=== PATIENT | male | born 1930 | race Caucasian/White ===

== ENCOUNTER 2016-12-01 19:05 | Inpatient (IN) | payer MEDICARE, OTHER ==
[2016-12-01] MEDS ORDERED: cefTRIAXone 1 GM in SODIUM CHLORIDE 0.9% MINIBAG 100 ML IV STA (20:08)
[2016-12-01] MEDS ORDERED: SODIUM CHLORIDE 0.9% 1,000 ML IV ONE (20:09)
[2016-12-01] MEDS ORDERED: AZITHROMYCIN INJ 500 MG in SODIUM CHLORIDE 0.9% 250 ML IV STA (20:09)
[2016-12-01] MEDS ORDERED: SODIUM CHLORIDE 0.9% 500 ML IV ONE (20:10)
[2016-12-01] MEDS ORDERED: cefTRIAXone 1 GM VIAL ONE (20:29)
[2016-12-01] MEDS ORDERED: HYDROcod/ACETAM 5/325 MG TABLET PO PRN (21:29)
[2016-12-01] MEDS ORDERED: ONDANSETRON ODT 4 MG TABLET TL PRN (21:29)
[2016-12-01] MEDS ORDERED: ACETAMINOPHEN 325 MG TABLET PO PRN (21:29)
[2016-12-01] MEDS ORDERED: ONDANSETRON 4 MG/2 ML VIAL IVP PRN (21:29)
[2016-12-01] MEDS: SODIUM CHLORIDE 0.9% 1,000 ML IV SCH (23:12)
[2016-12-01] MEDS: SODIUM CHLORIDE FLUSH 0.9% 10 ML SYRINGE IVP SCH (23:12)
[2016-12-01] MEDS ORDERED: diltiaZEM INJ 5 MG/ML VIAL IVP SCH (23:25)
[2016-12-01] MEDS: ALBUTEROL NEB 2.5 MG/3 ML INH PRN (23:56)
[2016-12-02] MEDS: ALBUTEROL NEB 2.5 MG/3 ML INH PRN ×4 (06:18→18:10)
[2016-12-02] MEDS: PANTOPRAZOLE 40 MG VIAL IVP SCH (06:35)
[2016-12-02] MEDS: SODIUM CHLORIDE FLUSH 0.9% 10 ML SYRINGE IVP SCH ×3 (06:36→22:11)
[2016-12-02] MEDS: SACCHAROMYCES BOULARDII 250 MG CAPSULE PO SCH ×2 (08:01→17:21)
[2016-12-02] MEDS: LOSARTAN 50 MG TABLET PO SCH (08:01)
[2016-12-02] MEDS: CARVEDILOL 12.5 MG TABLET PO SCH ×2 (08:01→20:34)
[2016-12-02] MEDS: cefTRIAXone 2 GM in SODIUM CHLORIDE 0.9% MINIBAG 100 ML IV SCH (08:12)
[2016-12-02] MEDS: AZITHROMYCIN INJ 500 MG in SODIUM CHLORIDE 0.9% 250 ML IV SCH (09:46)
[2016-12-02] MEDS: SODIUM CHLORIDE 0.9% 1,000 ML IV SCH ×2 (09:52→20:34)
[2016-12-02] MEDS ORDERED: POTASSIUM CHLORIDE 20 MEQ TABLET PO ONE (12:00)
[2016-12-02] MEDS: CALCIUM CITRATE 250 MG TABLET PO SCH ×4 (12:03→20:34)
[2016-12-02] MEDS ORDERED: LORazepam 2 MG/ML SYRINGE IVP PRN (17:42)
[2016-12-03] MEDS: SODIUM CHLORIDE 0.9% 1,000 ML IV SCH ×3 (05:05→17:30)
[2016-12-03] MEDS: ALBUTEROL NEB 2.5 MG/3 ML INH PRN ×3 (05:15→14:23)
[2016-12-03] MEDS: SODIUM CHLORIDE FLUSH 0.9% 10 ML SYRINGE IVP SCH ×2 (06:11→10:13)
[2016-12-03] MEDS: PANTOPRAZOLE 40 MG VIAL IVP SCH (06:11)
[2016-12-03] MEDS: SODIUM CHLORIDE FLUSH 0.9% 10 ML SYRINGE IVP PRN (06:11)
[2016-12-03] MEDS: SACCHAROMYCES BOULARDII 250 MG CAPSULE PO SCH ×2 (07:53→16:30)
[2016-12-03] MEDS: POLYETHYLENE GLYCOL 3350 17 GM PACKET PO SCH (08:50)
[2016-12-03] MEDS: CARVEDILOL 12.5 MG TABLET PO SCH ×2 (08:50→21:14)
[2016-12-03] MEDS: cefTRIAXone 2 GM in SODIUM CHLORIDE 0.9% MINIBAG 100 ML IV SCH (08:50)
[2016-12-03] MEDS: LOSARTAN 50 MG TABLET PO SCH (08:50)
[2016-12-03] MEDS: AZITHROMYCIN INJ 500 MG in SODIUM CHLORIDE 0.9% 250 ML IV SCH (09:42)
[2016-12-03] MEDS ORDERED: FUROSEMIDE 20 MG/2 ML VIAL IVP ONE ×2 (10:37→11:00)
[2016-12-03] MEDS: WARFARIN 5 MG TABLET PO SCH (13:25)
[2016-12-04] MEDS: SODIUM CHLORIDE FLUSH 0.9% 10 ML SYRINGE IVP SCH ×4 (01:08→14:30)
[2016-12-04] MEDS: ALBUTEROL NEB 2.5 MG/3 ML INH PRN (01:54)
[2016-12-04] MEDS: SODIUM CHLORIDE 0.9% 1,000 ML IV SCH (03:38)
[2016-12-04] MEDS: PANTOPRAZOLE 40 MG VIAL IVP SCH (06:47)
[2016-12-04] MEDS: SACCHAROMYCES BOULARDII 250 MG CAPSULE PO SCH ×2 (07:48→18:24)
[2016-12-04] MEDS: CARVEDILOL 12.5 MG TABLET PO SCH ×2 (08:31→21:00)
[2016-12-04] MEDS: POLYETHYLENE GLYCOL 3350 17 GM PACKET PO SCH (08:31)
[2016-12-04] MEDS: cefTRIAXone 2 GM in SODIUM CHLORIDE 0.9% MINIBAG 100 ML IV SCH (08:31)
[2016-12-04] MEDS: LOSARTAN 50 MG TABLET PO SCH (08:31)
[2016-12-04] MEDS ORDERED: FUROSEMIDE 20 MG/2 ML VIAL IVP SCH (09:30)
[2016-12-04] MEDS: AZITHROMYCIN INJ 500 MG in SODIUM CHLORIDE 0.9% 250 ML IV SCH (09:53)
[2016-12-04] MEDS ORDERED: ALBUTEROL NEB 2.5 MG/3 ML INH PRN (13:04)
[2016-12-04] MEDS: WARFARIN 5 MG TABLET PO SCH (14:29)
[2016-12-04] MEDS: predniSONE 20 MG TABLET PO SCH (14:29)
[2016-12-04] MEDS: IPRATROPIUM/ALBUTEROL 3 ML NEB INH SCH ×2 (14:30→20:50)
[2016-12-05] MEDS ORDERED: POTASSIUM CHLORIDE 20 MEQ TABLET PO SCH ×2 (05:28→09:00)
[2016-12-05] MEDS: PANTOPRAZOLE 40 MG VIAL IVP SCH (06:37)
[2016-12-05] MEDS: SODIUM CHLORIDE FLUSH 0.9% 10 ML SYRINGE IVP SCH ×4 (06:39→21:02)
[2016-12-05] MEDS: IPRATROPIUM/ALBUTEROL 3 ML NEB INH SCH ×4 (08:10→21:04)
[2016-12-05] MEDS: CARVEDILOL 12.5 MG TABLET PO SCH ×2 (08:31→21:01)
[2016-12-05] MEDS: LOSARTAN 50 MG TABLET PO SCH (08:31)
[2016-12-05] MEDS: predniSONE 20 MG TABLET PO SCH (08:31)
[2016-12-05] MEDS ORDERED: FUROSEMIDE 20 MG/2 ML VIAL IVP SCH (08:32)
[2016-12-05] MEDS: SACCHAROMYCES BOULARDII 250 MG CAPSULE PO SCH ×2 (08:33→18:12)
[2016-12-05] MEDS: POLYETHYLENE GLYCOL 3350 17 GM PACKET PO SCH (08:37)
[2016-12-05] MEDS ORDERED: SODIUM CHLORIDE 0.9% 500 ML IV PRN ×2 (09:40→09:49)
[2016-12-05] MEDS ORDERED: SODIUM CHLORIDE 0.9% 500 ML IV ONE (09:42)
[2016-12-05] MEDS: cefTRIAXone 2 GM in SODIUM CHLORIDE 0.9% MINIBAG 100 ML IV SCH (09:44)
[2016-12-05] MEDS: AZITHROMYCIN INJ 500 MG in SODIUM CHLORIDE 0.9% 250 ML IV SCH (10:33)
[2016-12-05] MEDS: SODIUM CHLORIDE FLUSH 0.9% 10 ML SYRINGE IVP PRN (11:51)
[2016-12-05] MEDS: WARFARIN 5 MG TABLET PO SCH (14:27)
[2016-12-06] MEDS: SODIUM CHLORIDE FLUSH 0.9% 10 ML SYRINGE IVP SCH ×3 (06:47→20:08)
[2016-12-06] MEDS: PANTOPRAZOLE 40 MG VIAL IVP SCH (06:47)
[2016-12-06] MEDS: IPRATROPIUM/ALBUTEROL 3 ML NEB INH SCH ×4 (07:16→20:12)
[2016-12-06] MEDS: predniSONE 20 MG TABLET PO SCH (07:50)
[2016-12-06] MEDS: SACCHAROMYCES BOULARDII 250 MG CAPSULE PO SCH ×2 (07:51→16:55)
[2016-12-06] MEDS ORDERED: POTASSIUM CHLORIDE 20 MEQ TABLET PO SCH (08:00)
[2016-12-06] MEDS: cefTRIAXone 2 GM in SODIUM CHLORIDE 0.9% MINIBAG 100 ML IV SCH (09:02)
[2016-12-06] MEDS: POTASSIUM CHLORIDE 20 MEQ TABLET PO SCH (09:06)
[2016-12-06] MEDS: CARVEDILOL 12.5 MG TABLET PO SCH ×2 (09:06→20:07)
[2016-12-06] MEDS: FUROSEMIDE 40 MG TABLET PO SCH (09:07)
[2016-12-06] MEDS: LOSARTAN 50 MG TABLET PO SCH (09:07)
[2016-12-06] MEDS: POLYETHYLENE GLYCOL 3350 17 GM PACKET PO SCH (09:33)
[2016-12-06] MEDS: AZITHROMYCIN INJ 500 MG in SODIUM CHLORIDE 0.9% 250 ML IV SCH (09:57)
[2016-12-06] MEDS: SODIUM CHLORIDE FLUSH 0.9% 10 ML SYRINGE IVP PRN (11:27)
[2016-12-06] MEDS: guaiFENesin 600 MG TABLET PO SCH ×2 (11:30→20:07)
[2016-12-06] MEDS: WARFARIN 5 MG TABLET PO SCH (15:05)
[2016-12-07] MEDS: PANTOPRAZOLE 40 MG VIAL IVP SCH (06:47)
[2016-12-07] MEDS: SODIUM CHLORIDE FLUSH 0.9% 10 ML SYRINGE IVP SCH ×3 (06:47→21:21)
[2016-12-07] MEDS: IPRATROPIUM/ALBUTEROL 3 ML NEB INH SCH ×4 (07:33→17:42)
[2016-12-07] MEDS: SACCHAROMYCES BOULARDII 250 MG CAPSULE PO SCH ×2 (09:32→17:53)
[2016-12-07] MEDS: FUROSEMIDE 40 MG TABLET PO SCH (09:32)
[2016-12-07] MEDS: guaiFENesin 600 MG TABLET PO SCH ×2 (09:32→21:18)
[2016-12-07] MEDS: predniSONE 20 MG TABLET PO SCH (09:32)
[2016-12-07] MEDS: POTASSIUM CHLORIDE 20 MEQ TABLET PO SCH (09:32)
[2016-12-07] MEDS: cefTRIAXone 2 GM in SODIUM CHLORIDE 0.9% MINIBAG 100 ML IV SCH (09:32)
[2016-12-07] MEDS: POLYETHYLENE GLYCOL 3350 17 GM PACKET PO SCH (09:33)
[2016-12-07] MEDS: AZITHROMYCIN INJ 500 MG in SODIUM CHLORIDE 0.9% 250 ML IV SCH (09:34)
[2016-12-07] MEDS: LOSARTAN 50 MG TABLET PO SCH (09:34)
[2016-12-07] MEDS: CARVEDILOL 12.5 MG TABLET PO SCH ×2 (09:34→21:17)
[2016-12-07] MEDS: WARFARIN 5 MG TABLET PO SCH (13:48)
[2016-12-08] MEDS: SODIUM CHLORIDE FLUSH 0.9% 10 ML SYRINGE IVP SCH (06:41)
[2016-12-08] MEDS: PANTOPRAZOLE 40 MG VIAL IVP SCH (06:41)
[2016-12-08] MEDS: IPRATROPIUM/ALBUTEROL 3 ML NEB INH SCH (07:40)
[2016-12-08] MEDS: FUROSEMIDE 40 MG TABLET PO SCH (08:12)
[2016-12-08] MEDS: SACCHAROMYCES BOULARDII 250 MG CAPSULE PO SCH (08:12)
[2016-12-08] MEDS: predniSONE 20 MG TABLET PO SCH (08:13)
[2016-12-08] MEDS: CARVEDILOL 12.5 MG TABLET PO SCH (08:13)
[2016-12-08] MEDS: guaiFENesin 600 MG TABLET PO SCH (08:14)
[2016-12-08] MEDS: POLYETHYLENE GLYCOL 3350 17 GM PACKET PO SCH (08:14)
[2016-12-08] MEDS: LOSARTAN 50 MG TABLET PO SCH (08:14)
[2016-12-08] MEDS: POTASSIUM CHLORIDE 20 MEQ TABLET PO SCH (08:15)
[2016-12-08] MEDS: cefTRIAXone 2 GM in SODIUM CHLORIDE 0.9% MINIBAG 100 ML IV SCH (08:15)
[2016-12-08] MEDS: SODIUM CHLORIDE FLUSH 0.9% 10 ML SYRINGE IVP PRN (08:21)
[2016-12-08] MEDS: AZITHROMYCIN INJ 500 MG in SODIUM CHLORIDE 0.9% 250 ML IV SCH (10:29)
== END 2016-12-08 13:19 | disposition home or self-care (01) | DRG 189 ==
DX: J96.01 Acute respiratory failure with hypoxia (principal); J18.1 Lobar pneumonia, unspecified organism; J18.9 Pneumonia, unspecified organism; I48.91 Unspecified atrial fibrillation; E87.6 Hypokalemia; J44.0 Chronic obstructive pulmonary disease with (acute) lower respiratory infection; J44.1 Chronic obstructive pulmonary disease with (acute) exacerbation; I48.2 Chronic atrial fibrillation; E87.70 Fluid overload, unspecified; I11.9 Hypertensive heart disease without heart failure; I25.10 Atherosclerotic heart disease of native coronary artery without angina pectoris; E78.5 Hyperlipidemia, unspecified; F03.90 Unspecified dementia, unspecified severity, without behavioral disturbance, psychotic disturbance, mood disturbance, and anxiety; F10.10 Alcohol abuse, uncomplicated; K21.9 Gastro-esophageal reflux disease without esophagitis; M19.90 Unspecified osteoarthritis, unspecified site; L23.9 Allergic contact dermatitis, unspecified cause; I73.00 Raynaud's syndrome without gangrene; I25.2 Old myocardial infarction; Z87.891 Personal history of nicotine dependence; Z95.5 Presence of coronary angioplasty implant and graft; Z96.659 Presence of unspecified artificial knee joint; Z99.81 Dependence on supplemental oxygen; Z79.82 Long term (current) use of aspirin; Z79.899 Other long term (current) drug therapy; Z90.79 Acquired absence of other genital organ(s); Z66 Do not resuscitate

== ENCOUNTER 2017-11-06 09:27 | Inpatient (IN) | payer MEDICARE, OTHER ==
[2017-11-06] MEDS ORDERED: SODIUM CHLORIDE 0.9% 1,000 ML IV ONE (09:47)
--- NOTE | 2017-11-06 10:09 | XRAY Report ---
EXAM: CHEST RADIOGRAPHY EXAM DATE: 11/06/2017 09:55 AM. CLINICAL HISTORY: Cough, shortness of breath, hypotension. COMPARISON: 05/31/2017, 12/03/2016. TECHNIQUE: 1 view. FINDINGS: Lungs/Pleura: There is patchy opacity at the medial right lung base. No pleural effusion. No pneumoth orax. Mediastinum: There is stable borderline enlargement of the cardiac silhouette. There is moderate athe rosclerotic calcification of the tortuous thoracic aorta. Other: No acute osseous abnormality. IMPRESSION: 1. Patchy opacity at the medial right lung base may represent pneumonia, aspiration, or edema. 2. Stable borderline cardiomegaly. [facility] Referring Provider Line: [phone] SITE ID: [id number]
--- NOTE | 2017-11-06 10:09 | XRAY Preliminary Report ---
Exam: XR CHEST 1 VIEW X-RAY IMPRESSION: 1. Patchy opacity at the medial right lung base may represent pneumonia, aspiration, or edema. 2. Stable borderline cardiomegaly. [facility] SITE ID: [id number]
--- NOTE | 2017-11-06 10:12 | ED Physician Documentation ---
History of Present Illness - Stated complaint Stated Complaint: FEVER/COUGH - Chief complaint Chief Complaint: Resp - Additonal information Additional information: hx from friend and pt 87 male fairly healthy - [place] has some short term memory issues per caregiver hx HTN and recurrent pna cough for three days sweats and chills had a MASSEY now better s/p apap no NVD Review of Systems Constitutional: reports: Chills, Fatigue, Sweats. denies: Fever Throat: denies: Sore throat Cardiac: denies: Chest pain / pressure Respiratory: reports: Dyspnea (worse laying down), Cough : denies: Dysuria Musculoskeletal: reports: Extremity swelling (mild) Endocrine: denies: Easy bruising / bleeding Immunocompromised: denies: Immunocompromised PD PAST MEDICAL HISTORY - Past Medical History Cardiovascular: Hypertension Respiratory: None Neuro: None Endocrine/Autoimmune: None GI: None : None Psych: None Musculoskeletal: None Derm: None - Past Surgical History Ortho: Knee replacement Cardiovascular: Coronary stent - Present Medications Home Medications: Ambulatory Orders Medication Instructions Recorded Confirmed Aspirin Chewable [[place] 81 mg PO DAILY 12/02/16 11/06/17 Aspirin] Cetirizine [ZyrTEC] 10 mg PO DAILY 12/02/16 11/06/17 Losartan Potassium [Cozaar] 100 mg PO DAILY 12/02/16 11/06/17 [place]-3/Dha/Epa/Fish Oil [Fish Oil 1,000 mg PO DAILY 12/02/16 11/06/17 1,000 mg Softgel] Albuterol Sulfate [Proair Hfa 1 - 2 puffs INH Q4H PRN #1 inhaler 12/08/16 Inhaler] Warfarin [Coumadin] 5 mg PO QDWARFARIN 30 Days tablet 12/08/16 Carvedilol [Coreg] 6.25 mg PO BID 11/06/17 11/06/17 Potassium Chloride [K-Dur] 20 meq PO DAILYWM 11/06/17 11/06/17 - Allergies Allergies/Adverse Reactions: Allergies Allergy/AdvReac Type Severity Reaction Status Date / Time amoxicillin Allergy Unknown Verified 12/05/16 16:59 codeine Allergy Unknown Verified 12/05/16 16:58 [id number] Reductase Allergy Unknown Verified 12/05/16 17:02 Inhibitor - Social History Does the pt smoke?: No Smoking Status: Never smoker Does the pt drink ETOH?: Yes Does the pt have substance abuse?: No PD ED PE NORMAL - Vitals Vital signs reviewed: Yes (BP low) - General General: Alert and oriented X 3 - HEENT HEENT: PERRL - Neck Neck: Supple, no meningeal sign - Cardiac Cardiac: RRR - Respiratory Respiratory: No respiratory distress, Clear bilaterally - Abdomen Abdomen: Soft, Non tender - Derm Derm: Normal color, Other (warm) - Extremities Extremities: No: No edema (mild symm non tender) - Neuro Neuro: Alert and oriented X 3 Results - Vitals Vitals: Vital Signs - 24 hr 11/06/17 09:41 Temperature 36.4 C L Heart Rate 85 Respiratory 18 Rate Blood Pressure 94/64 O2 Saturation 94 Oxygen O2 Source Room air - Labs Labs: Laboratory Tests 11/06/17 11/06/17 11/06/17 10:24 10:24 10:24 WBC 15.8 H RBC 4.35 L Hgb 14.0 Hct 41.5 L MCV 95.3 H MCH 32.3 H MCHC 33.9 RDW 13.1 Plt Count 164 MPV 9.2 Neut # 13.0 H Lymph # 1.6 [place] # 1.1 H Eos # 0.0 Baso # 0.0 Absolute Nucleated RBC 0.01 Nucleated RBC % 0.0 PT INR Sodium 134 L Potassium 4.2 Chloride 102 Carbon Dioxide 22 Anion Gap 10.0 BUN 23 H Creatinine 1.3 H Estimated GFR (MDRD) 52 L Glucose 125 H Lactic Acid Calcium 9.0 Troponin I < 0.04 B-Natriuretic Peptide Influenza A (Rapid) Influenza B (Rapid) Influenza Types A,B Ag 11/06/17 11/06/17 11/06/17 10:24 10:24 10:24 WBC RBC Hgb Hct MCV MCH MCHC RDW Plt Count MPV Neut # Lymph # [place] # Eos # Baso # Absolute Nucleated RBC Nucleated RBC % PT 14.8 H INR 1.3 H Sodium Potassium Chloride Carbon Dioxide Anion Gap BUN Creatinine Estimated GFR (MDRD) Glucose Lactic Acid 1.5 Calcium Troponin I B-Natriuretic Peptide 210 H Influenza A (Rapid) Influenza B (Rapid) Influenza Types A,B Ag 11/06/17 11:15 WBC RBC Hgb Hct MCV MCH MCHC RDW Plt Count MPV Neut # Lymph # [place] # Eos # Baso # Absolute Nucleated RBC Nucleated RBC % PT INR Sodium Potassium Chloride Carbon Dioxide Anion Gap BUN Creatinine Estimated GFR (MDRD) Glucose Lactic Acid Calcium Troponin I B-Natriuretic Peptide Influenza A (Rapid) Negative Influenza B (Rapid) Negative Influenza Types A,B Ag - - Rads (name of study) CXR Radiology: See rad report (right medial lung base infiltrate) PD MEDICAL DECISION MAKING - ED course ED course: pna hypotensive meets SIRS criteria lactate neg gave 1 L NS and ab - will recheck BP - if still low BP will give full 300 cc/kg waiting on flu swab but will need admit either way d/w hospitalist at 11 AM Departure - Departure Disposition: 66 [facility] DC/Xfer Clinical Impression: Pneumonia Qualifiers: Pneumonia type: due to unspecified organism Laterality: right Lung location: lower lobe of lung Qualified Code(s): J18.1 - Lobar pneumonia, unspecified organism Discharge Date/Time: 11/06/17 11:48
[2017-11-06 10:36] LABS: BASOPHILS % (AUTO) 0.3 %; EOSINOPHILS % (AUTO) 0.1 %; LYMPHOCYTES # (AUTO) 1.6 10^3/uL (1.5-3.5); LYMPHOCYTES % (AUTO) 9.9 %; MEAN CORPUSCULAR HEMOGLOBIN 32.3 pg (27.0-31.0); MEAN CORPUSCULAR HGB CONC 33.9 g/dL (32.0-36.0); MEAN CORPUSCULAR VOLUME 95.3 fL (80.0-94.0); MEAN PLATELET VOLUME 9.2 fL (7.4-11.4); MONOCYTES # (AUTO) 1.1 10^3/uL (0.0-1.0); MONOCYTES % (AUTO) 7.3 %; NEUTROPHILS % (AUTO) 82.4 %; PLT - PLATELET COUNT 164 10^3/uL (130-450); RED BLOOD COUNT 4.35 10^6/uL (4.70-6.10); RED CELL DISTRIBUTION WIDTH 13.1 % (12.0-15.0); WHITE BLOOD COUNT 15.8 x10^3/uL (4.8-10.8)
[2017-11-06 10:42] LABS: INR 1.3 (0.8-1.2); PT - PROTHROMBIN TIME 14.8 secs (9.9-12.6)
[2017-11-06 10:48] LABS: CREATININE 1.3 mg/dL (0.6-1.2)
[2017-11-06] MEDS ORDERED: cefTRIAXone 1 GM in SODIUM CHLORIDE 0.9% MINIBAG 100 ML IV STA (11:03)
[2017-11-06] MEDS ORDERED: AZITHROMYCIN 250 MG TABLET PO STA (11:04)
--- NOTE | 2017-11-06 12:17 | HISTORY & PHYSICAL EXAMINATION ---
Chief Complaint - Chief Complaint Chief Complaint: shortness of breath and cough History of Present Illness - Admitted From Admitted From:: ED - History Obtained From Records Reviewed: yes History obtained from: chart review, friend Charanjit, and patient Exam Limitations: none - History of Present Illness HPI Comment/Other: Jaylen Can (Bob) is an elderly 87-year old white male with a past medical history of short term memory loss, early dementia, previous pneumonia, hypertension, atrial fibrillation, knee replacement, coronary stenting, and COPD. He presented to the ED today after being ill for the past 3 days with a cough, chills, fever, and increased SOB. He attempted to get an appointment with his PCP yesterday for these symptoms with no luck. He denies chest pain, N /V, or dizziness. He will be admitted for further treatment of his pneumonia, IV fluids and telemetry monitoring. History - Past Medical History Cardiovascular: reports: Hypertension, Atrial fibrillation, Arrhythmia Respiratory: reports: None Neuro: reports: Dementia Endocrine/Autoimmune: reports: None GI: reports: GERD : reports: Nocturia, Frequency HEENT: reports: Chronic vision loss, Chronic hearing loss Psych: reports: None Musculoskeletal: reports: None Derm: reports: None MRSA Hx?: No - Past Surgical History Ortho: reports: Knee replacement Cardiovascular: reports: Coronary stent Neuro: denies: Craniotomy, RELATIONSH[employer]IST shunt - Family & Social History Family History: Mother: , Father: , Sister: Alive and Well, , Brother: Family History Comment/Other: Patient's memory is not the best, but does not believe that his mother or father had any chronic illnesses. He has one living sister who is alive and well. 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 He has been 2 times , and his last several years ago. He has one step-son who lives in [facility] and is disabled. He denies tobacco, illicit drugs or alcohol use. He wishes to be a FULL code. - Substance History Use: Uses substance without health or social issues: NONE Abuse: Recurrent use of substance despite neg consequences: NONE Dependence: Experiences withdrawal or developed tolerances: NONE - POLST Patient has POLST: No POLST Status: Full Code Meds/Allgy - Home Medications Home Medications: Ambulatory Orders Medication Instructions Recorded Confirmed Aspirin Chewable [[place] 81 mg PO DAILY 12/02/16 11/06/17 Aspirin] Cetirizine [ZyrTEC] 10 mg PO DAILY 12/02/16 11/06/17 Losartan Potassium [Cozaar] 100 mg PO DAILY 12/02/16 11/06/17 [place]-3/Dha/Epa/Fish Oil [Fish Oil 1,000 mg PO DAILY 12/02/16 11/06/17 1,000 mg Softgel] Albuterol Sulfate [Proair Hfa 1 - 2 puffs INH Q4H PRN #1 inhaler 12/08/16 Inhaler] Carvedilol [Coreg] 6.25 mg PO BID 11/06/17 11/06/17 Potassium Chloride [K-Dur] 20 meq PO DAILYWM 11/06/17 11/06/17 - Allergies Allergies/Adverse Reactions: Allergies Allergy/AdvReac Type Severity Reaction Status Date / Time amoxicillin Allergy Unknown Verified 12/05/16 16:59 codeine Allergy Unknown Verified 12/05/16 16:58 [id number]-[id number]-Hcm Reductase Allergy Unknown Verified 12/05/16 17:02 Inhibitor Review of Systems - Constitutional Constitutional: reports: Fatigue, Fever, Chills, Weakness. denies: Poor appetite, Night sweats, Weight gain, Weight loss - Eyes Eyes: reports: Vision loss, Corrective lenses. denies: Pain, Irritation, Amaurosis - Ears, Nose & Throat Ears, Nose & Throat: reports: Hearing loss, Dentures. denies: Hearing aids, Tinnitus, Vertigo, Dental decay - Cardiovascular Cariovascular: reports: Decr. exercise tolerance. denies: Irregular heart rate , Palpitations, Chest pain, Edema - Respiratory Respiratory: reports: Cough. denies: Sputum production, Wheezing - Gastrointestinal Gastrointestinal: reports: Reflux/heartburn. denies: Abdominal pain, Abdominal distention, Constipation, Diarrhea - Genitourinary Genitourinary: reports: Nocturia. denies: Dysuria, Frequency, Urgency, Incontinence - Musculoskeletal Musculoskeletal: denies: Muscle pain, Back pain, Muscle aches, Stiffness - Integumentary Integumentary: reports: Dryness. denies: Rash, Pruritis, Lesions - Neurological Neurological: reports: Headache. denies: General weakness, Focal weakness - Psychiatric Psychiatric: denies: Depression, Anxiety, Suicidal - Endocrine Endocrine: denies: Polyuria, Polydypsia - Hematologic/Lymphatic Hematologic/Lymphatic: denies: Anemia, Bruising - All Other Systems All Other Systems: reports: Reviewed and negative Exam - Vital Signs Reviewed Vital Signs: Yes Vital Signs: Vital Signs x48h Pulse Resp BP Pulse Ox 11/06/17 11:41 78 22 122/67 95 - Physical Exam General Appearance: positive: Alert, Moderate distress Eyes Bilateral: positive: Normal inspection ENT: positive: ENT inspection nml, Pharynx nml, Dry mucous membranes Neck: positive: Nml inspection, Thyroid nml, Stiff neck Respiratory: positive: Chest non-tender, Wheezes, Rhonchi Cardiovascular: positive: No gallop, Irregularly irregular, Systolic murmur, Decreased pulse(s) Peripheral Pulses: positive: 2+ Abdomen: positive: Non-tender, No organomegaly, Nml bowel sounds, No distention Back: positive: Nml inspection Skin: positive: No rash, Warm, Dry, Pallor Extremities: positive: Non-tender, Full ROM, No pedal edema Neurologic/Psychiatric: positive: CN's nml (2-12), Motor nml, Sensation nml, Disoriented to time, Slurred/abnml speech, Depressed mood/affect, Other ( baseline short term memory loss, early dementia) Reflexes: Bicep (R): 3+, Bicep (L): 3+ Conclusion/Plan - Problem List (1) Lobar pneumonia, unspecified organism Conclusion/Plan: Patient is noted to have a right sided pneumonia suspicious for aspiration. Patient denies increased cough or sputum production. Plan: Start IV antibiotics, IV steroids, and nebs. (2) Chronic atrial fibrillation Conclusion/Plan: Patient is noted to have severe RA enlargement, causing the patient's arrhythmia to be chronic. He admits to previous anticoagulation. Plan: Telemetry x 24 hours, then monitor vital signs. May consider anticoagulant upon discharge. (3) Dementia Conclusion/Plan: Patient has been living with friends Charanjit and Vida who are his care givers. Patient no longer drives, but can still complete all ADLs. Due to patient's declining health and poor memory, he now lives with friends. Plan: Continue current plan. - Lab Results Fish Bones: 11/08/17 04:40 11/08/17 04:40 Core Measures - Anticipated LOS I expect patient to be DC'd or transferred within 96 hours.: Yes - DVT/VTE - Prophylaxis VTE/DVT Device ordered at admit?: Yes VTE/DVT Prophylaxis med ordered at admit?: Yes - Stroke - Rehab Assessment Rehab services assessment to be ordered?: Yes - AMI - Statin at Admit Aspirin Prescribed on Admit: Yes
[2017-11-06] MEDS: CARVEDILOL 3.125 MG TABLET PO SCH ×2 (13:27→21:48)
[2017-11-06] MEDS: SODIUM CHLORIDE FLUSH 0.9% 10 ML SYRINGE IVP PRN ×3 (14:32→21:52)
[2017-11-06] MEDS ORDERED: IPRATROPIUM/ALBUTEROL 3 ML NEB INH PRN (16:09)
[2017-11-06] MEDS: SODIUM CHLORIDE FLUSH 0.9% 10 ML SYRINGE IVP SCH (16:13)
[2017-11-06] MEDS: LEVALBUTEROL 1.25 MG/3 ML NEB INH SCH ×2 (16:17→20:24)
[2017-11-06] MEDS: methylPREDNISolone SUCCINATE 40 MG/ML VIAL IVP SCH ×2 (18:03→21:52)
[2017-11-06] MEDS: guaiFENesin 600 MG TABLET PO SCH (18:03)
[2017-11-06] MEDS: ENOXAPARIN 40 MG/0.4 ML SYRINGE SUBQ SCH (18:03)
[2017-11-07] MEDS: LEVALBUTEROL 1.25 MG/3 ML NEB INH SCH ×6 (00:24→22:12)
[2017-11-07 04:43] LABS: BASOPHILS % (AUTO) 0.4 %; HGB - HEMOGLOBIN 12.4 g/dL (14.0-18.0); LYMPHOCYTES # (AUTO) 0.7 10^3/uL (1.5-3.5); LYMPHOCYTES % (AUTO) 8.1 %; MEAN CORPUSCULAR HEMOGLOBIN 32.3 pg (27.0-31.0); MEAN CORPUSCULAR VOLUME 94.9 fL (80.0-94.0); MEAN PLATELET VOLUME 9.2 fL (7.4-11.4); MONOCYTES # (AUTO) 0.2 10^3/uL (0.0-1.0); MONOCYTES % (AUTO) 1.8 %; NEUTROPHILS # (AUTO) 8.1 10^3/uL (1.5-6.6); NEUTROPHILS % (AUTO) 89.7 %; PLT - PLATELET COUNT 163 10^3/uL (130-450); RED BLOOD COUNT 3.83 10^6/uL (4.70-6.10); RED CELL DISTRIBUTION WIDTH 13.3 % (12.0-15.0); WHITE BLOOD COUNT 9.1 x10^3/uL (4.8-10.8)
[2017-11-07 04:55] LABS: ALBUMIN 3.6 g/dL (3.2-5.5); ALBUMIN/GLOBULIN RATIO 1.1 (1.0-2.2); BILIRUBIN,TOTAL 0.8 mg/dL (0.2-1.0); CALCIUM 8.7 mg/dL (8.5-10.3); CREATININE 1.1 mg/dL (0.6-1.2)
[2017-11-07 05:20] LABS: INR 1.3 (0.8-1.2); PT - PROTHROMBIN TIME 14.5 secs (9.9-12.6)
[2017-11-07] MEDS: methylPREDNISolone SUCCINATE 40 MG/ML VIAL IVP SCH ×3 (05:21→20:50)
[2017-11-07] MEDS: SODIUM CHLORIDE FLUSH 0.9% 10 ML SYRINGE IVP SCH ×3 (05:21→16:13)
--- NOTE | 2017-11-07 08:31 | PROVIDER PROGRESS NOTE ---
Subjective - Prog Note Date Prog Note Date: 11/07/17 Prog Note Time: 08:31 - Subjective Pt reports feeling: Improved Subjective: Rogelio has no complaints. He denies SOB, chest pain, N/V or a new cough. Objective - Vital Signs/Intake & Output Reviewed Vital Signs: Yes Vital Signs: Vital Signs x48h Temp Pulse Pulse Resp BP Pulse Ox 11/07/17 06:04 36.3 C L 85 18 133/69 H 98 11/07/17 04:40 88 20 Intake & Output: Intake & Output 11/04/17 11/05/17 11/06/17 11/07/17 23:59 23:59 23:59 23:59 Intake Total 2079 400 Output Total 0 525 Balance 2079 - Objective General Appearance: positive: No acute distress, Alert Eyes Bilateral: positive: Normal inspection Eyes: OU Conjunctivae pale ENT: positive: ENT inspection nml, Pharynx nml, Dry mucous membranes Neck: positive: Nml inspection, Thyroid nml, No JVD, Trachea midline Respiratory: positive: Chest non-tender, No respiratory distress, Wheezes, Rhonchi Cardiovascular: positive: No gallop, Irregularly irregular, Systolic murmur, Decreased pulse(s) Peripheral Pulses: 2+ Radial (R), 2+ Radial (L) Abdomen: positive: Non-tender, No organomegaly, Nml bowel sounds, Other (rounded , soft) Back: positive: Nml inspection Skin: positive: No rash, Warm, Dry, Pallor Extremities: positive: Non-tender, Full ROM, Pedal edema, Joint swelling Neurologic/Psychiatric: positive: CN's nml (2-12), Motor nml, Sensation nml, Disoriented to time, Weakness, Sensory loss, Depressed mood/affect Reflexes: Bicep (R): 2+, Bicep (L): 2+ - Lab Results Fish Bones: 11/09/17 04:48 11/09/17 04:48 Other Labs: Lab Results x24hrs 11/07/17 11/07/17 11/07/17 Range/Units 04:20 04:20 04:20 WBC (4.8-10.8) x10^3/uL RBC (4.70-6.10) 10^6/uL Hgb (14.0-18.0) g/dL Hct (42.0-52.0) % MCV (80.0-94.0) fL MCH (27.0-31.0) pg MCHC (32.0-36.0) g/dL RDW (12.0-15.0) % Plt Count (130-450) 10^3/uL MPV (7.4-11.4) fL Neut # (1.5-6.6) 10^3/uL Lymph # (1.5-3.5) 10^3/uL [place] # (0.0-1.0) 10^3/uL Eos # (0.0-0.7) 10^3/uL Baso # (0.0-0.1) 10^3/uL Absolute Nucleated RBC x10^3/uL Nucleated RBC % /100WBC PT 14.5 H (9.9-12.6) secs INR 1.3 H (0.8-1.2) APTT 25.6 (24.9-33.3) secs Sodium 135 (135-145) mmol/L Potassium 4.1 (3.5-5.0) mmol/L Chloride 105 (101-111) mmol/L Carbon Dioxide 22 (21-32) mmol/L Anion Gap 8.0 (6-13) BUN 20 (6-20) mg/dL Creatinine 1.1 (0.6-1.2) mg/dL Estimated GFR (MDRD) 64 L (>89) Glucose 215 H (70-100) mg/dL Lactic Acid 1.7 (0.5-2.2) mmol/L Calcium 8.7 (8.5-10.3) mg/dL Phosphorus 2.0 L (2.5-4.6) mg/dL Magnesium 2.0 (1.7-2.8) mg/dL Total Bilirubin 0.8 (0.2-1.0) mg/dL AST 21 (10-42) IU/L ALT 21 (10-60) IU/L Alkaline Phosphatase 34 L (42-121) IU/L Total Protein 7.0 (6.7-8.2) g/dL Albumin 3.6 (3.2-5.5) g/dL Globulin 3.4 (2.1-4.2) g/dL Albumin/Globulin Ratio 1.1 (1.0-2.2) 11/07/17 Range/Units 04:20 WBC 9.1 (4.8-10.8) x10^3/uL RBC 3.83 L (4.70-6.10) 10^6/uL Hgb 12.4 L (14.0-18.0) g/dL Hct 36.4 L (42.0-52.0) % MCV 94.9 H (80.0-94.0) fL MCH 32.3 H (27.0-31.0) pg MCHC 34.0 (32.0-36.0) g/dL RDW 13.3 (12.0-15.0) % Plt Count 163 (130-450) 10^3/uL MPV 9.2 (7.4-11.4) fL Neut # 8.1 H (1.5-6.6) 10^3/uL Lymph # 0.7 L (1.5-3.5) 10^3/uL [place] # 0.2 (0.0-1.0) 10^3/uL Eos # 0.0 (0.0-0.7) 10^3/uL Baso # 0.0 (0.0-0.1) 10^3/uL Absolute Nucleated RBC 0.01 x10^3/uL Nucleated RBC % 0.1 /100WBC PT (9.9-12.6) secs INR (0.8-1.2) APTT (24.9-33.3) secs Sodium (135-145) mmol/L Potassium (3.5-5.0) mmol/L Chloride (101-111) mmol/L Carbon Dioxide (21-32) mmol/L Anion Gap (6-13) BUN (6-20) mg/dL Creatinine (0.6-1.2) mg/dL Estimated GFR (MDRD) (>89) Glucose (70-100) mg/dL Lactic Acid (0.5-2.2) mmol/L Calcium (8.5-10.3) mg/dL Phosphorus (2.5-4.6) mg/dL Magnesium (1.7-2.8) mg/dL Total Bilirubin (0.2-1.0) mg/dL AST (10-42) IU/L ALT (10-60) IU/L Alkaline Phosphatase (42-121) IU/L Total Protein (6.7-8.2) g/dL Albumin (3.2-5.5) g/dL Globulin (2.1-4.2) g/dL Albumin/Globulin Ratio (1.0-2.2) - Diagnostic Imaging Diagnostic Imaging Results: positive: Final report reviewed Assessment/Plan - Problem List (1) Lobar pneumonia, unspecified organism Impression: Patient is noted to have a right sided pneumonia suspicious for aspiration. Patient denies increased cough or sputum production. Plan: Start IV antibiotics, IV steroids, and nebs. (2) Chronic atrial fibrillation Impression: Patient is noted to have severe RA enlargement, causing the patient's arrhythmia to be chronic. He admits to previous anticoagulation. Telemetry monitoring was uneventful and was discontinued for 24 hours. Plan: Contiue to monitor vital signs. May consider anticoagulant upon discharge. (3) Dementia Impression: Patient has been living with friends Charanjit and Vida who are his care givers. Patient no longer drives, but can still complete all ADLs. Due to patient's declining health and poor memory, he now lives with friends. Plan: Continue current plan.
[2017-11-07] MEDS: cefTRIAXone 1 GM in SODIUM CHLORIDE 0.9% MINIBAG 100 ML IV SCH (09:22)
[2017-11-07] MEDS: CARVEDILOL 3.125 MG TABLET PO SCH ×2 (09:28→20:49)
[2017-11-07] MEDS: guaiFENesin 600 MG TABLET PO SCH ×2 (09:29→20:49)
[2017-11-07] MEDS: POLYETHYLENE GLYCOL 3350 17 GM PACKET PO SCH (09:29)
[2017-11-07] MEDS: ENOXAPARIN 40 MG/0.4 ML SYRINGE SUBQ SCH (09:29)
[2017-11-07] MEDS: SODIUM CHLORIDE FLUSH 0.9% 10 ML SYRINGE IVP PRN ×2 (14:03→20:50)
[2017-11-08] MEDS: SODIUM CHLORIDE FLUSH 0.9% 10 ML SYRINGE IVP SCH ×4 (01:10→20:55)
[2017-11-08 05:13] LABS: BASOPHILS % (AUTO) 0.2 %; HGB - HEMOGLOBIN 12.4 g/dL (14.0-18.0); LYMPHOCYTES % (AUTO) 5.7 %; MEAN CORPUSCULAR HEMOGLOBIN 31.5 pg (27.0-31.0); MEAN CORPUSCULAR HGB CONC 33.2 g/dL (32.0-36.0); MEAN CORPUSCULAR VOLUME 94.9 fL (80.0-94.0); MEAN PLATELET VOLUME 9.4 fL (7.4-11.4); MONOCYTES % (AUTO) 4.1 %; PLT - PLATELET COUNT 206 10^3/uL (130-450); RED BLOOD COUNT 3.95 10^6/uL (4.70-6.10); RED CELL DISTRIBUTION WIDTH 13.2 % (12.0-15.0); WHITE BLOOD COUNT 20.5 x10^3/uL (4.8-10.8)
[2017-11-08 05:19] LABS: ALBUMIN 3.6 g/dL (3.2-5.5); BILIRUBIN,TOTAL 0.5 mg/dL (0.2-1.0); CALCIUM 8.8 mg/dL (8.5-10.3); TOTAL PROTEIN 7.3 g/dL (6.7-8.2)
[2017-11-08 05:21] LABS: ABNORMAL LYMPHS % (MANUAL) 0 %
[2017-11-08 05:26] LABS: INR 1.1 (0.8-1.2); PT - PROTHROMBIN TIME 12.8 secs (9.9-12.6)
[2017-11-08 06:12] LABS: BAND NEUTROPHILS % (MANUAL) 7 %; DIFFERENTIAL COMMENT MANUAL DIFFERENTIAL; LYMPHOCYTES # (MANUAL) 1.4 10^3/uL (1.5-3.5); LYMPHOCYTES % (MANUAL) 7 %; MONOCYTES # (MANUAL) 1.4 10^3/uL (0.0-1.0); NEUTROPHILS # (MANUAL) 17.6 10^3/uL (1.5-6.6); NEUTROPHILS % (MANUAL) 79 %; PLATELET ESTIMATE, MANUAL NORMAL (130-450,000) (NORMAL); RBC MORPHOLOGY (MULTIPLE) NORMAL APPEARANCE (NORMAL)
[2017-11-08] MEDS: LEVALBUTEROL 1.25 MG/3 ML NEB INH SCH ×2 (07:47→18:06)
[2017-11-08] MEDS: cefTRIAXone 1 GM in SODIUM CHLORIDE 0.9% MINIBAG 100 ML IV SCH (10:36)
[2017-11-08] MEDS: methylPREDNISolone SUCCINATE 40 MG/ML VIAL IVP SCH ×2 (10:37→20:54)
[2017-11-08] MEDS: guaiFENesin 600 MG TABLET PO SCH ×2 (10:37→20:55)
[2017-11-08] MEDS: ENOXAPARIN 40 MG/0.4 ML SYRINGE SUBQ SCH (10:37)
[2017-11-08] MEDS: POLYETHYLENE GLYCOL 3350 17 GM PACKET PO SCH (10:37)
[2017-11-08] MEDS: CARVEDILOL 3.125 MG TABLET PO SCH ×2 (10:37→20:55)
--- NOTE | 2017-11-08 21:32 | PROVIDER PROGRESS NOTE ---
Subjective - Prog Note Date Prog Note Date: 11/08/17 Prog Note Time: 08:00 - Subjective Pt reports feeling: Improved Subjective: Rogelio would like to return home today, but still has a cough, and not long enough on IV antibiotics. He denies increased SOB, chest pain, N/V or a new cough. Current Medications - Current Medications Current Medications: Active Medications Albuterol/Ipratropium (Duoneb) 3 ml INH Q4HR PRN PRN Reason: Wheezing Last Admin: 11/07/17 13:30 Dose: 3 ml Carvedilol (Coreg) 6.25 mg PO BID [facility], [facility] Last Admin: 11/08/17 20:55 Dose: 6.25 mg Enoxaparin Sodium (Lovenox) 40 mg SUBQ DAILY [facility], [facility]1983 Last Admin: 11/08/17 10:37 Dose: 40 mg Guaifenesin (Mucinex) 600 mg PO BID [facility]1983 Last Admin: 11/08/17 20:55 Dose: 600 mg Ceftriaxone Sodium 1 gm/ (Sodium Chloride) 100 mls @ 200 mls/hr IV DAILY [facility]1983 Last Infusion: 11/08/17 12:11 Dose: Infused Levalbuterol HCl (Xopenex) 1.25 mg INH RTBID [facility], [facility]1983 Last Admin: 11/08/17 18:06 Dose: 1.25 mg Methylprednisolone (Solu-Medrol (40mg Vial)) 40 mg IVP BID [facility]1983 Last Admin: 11/08/17 20:54 Dose: 40 mg Polyethylene Glycol (Miralax) 17 gm PO DAILY [facility] Last Admin: 11/08/17 10:37 Dose: 17 gm Sodium Chloride (Normal Saline Flush 0.9%) 10 ml IVP PRN PRN PRN Reason: NEEDED PER PROVIDER ORDERS Last Admin: 11/07/17 20:50 Dose: 10 ml Sodium Chloride (Normal Saline Flush 0.9%) 10 ml IVP 0100,0900,1700 [facility] Last Admin: 11/08/17 20:55 Dose: 10 ml Aspirin Chewable [[place] Aspirin] 81 mg PO DAILY 12/02/16 Cetirizine [ZyrTEC] 10 mg PO DAILY 12/02/16 Losartan Potassium [Cozaar] 100 mg PO DAILY 12/02/16 [place]-3/Dha/Epa/Fish Oil [Fish Oil 1,000 mg Softgel] 1,000 mg PO DAILY 12/02/16 Carvedilol [Coreg] 6.25 mg PO BID 11/06/17 Potassium Chloride [K-Dur] 20 meq PO DAILYWM 11/06/17 Objective - Vital Signs/Intake & Output Reviewed Vital Signs: Yes Vital Signs: Vital Signs x48h Temp Pulse Pulse Resp BP Pulse Ox 11/08/17 18:06 94 20 11/08/17 15:59 36.3 C L 102 H 20 143/95 H 96 Intake & Output: Intake & Output 11/05/17 11/06/17 11/07/17 11/08/17 23:59 23:59 23:59 23:59 Intake Total 2079 1720 1700 Output Total 0 525 1000 Balance 2079 1195 700 - Objective General Appearance: positive: No acute distress, Alert Eyes: OU Conjunctivae pale ENT: positive: ENT inspection nml, Pharynx nml, No signs of dehydration Neck: positive: Nml inspection, Thyroid nml, No JVD, Trachea midline Respiratory: positive: Chest non-tender, No respiratory distress, Other ( crackles.) Cardiovascular: positive: No gallop, Irregularly irregular, Systolic murmur, Decreased pulse(s) Peripheral Pulses: 1+ Radial (R), 1+ Radial (L) Abdomen: positive: Non-tender, Nml bowel sounds, Other (rounded, soft) Back: positive: Nml inspection Skin: positive: No rash, Warm, Dry, Pallor Extremities: positive: Non-tender, Full ROM, Nml appearance, Pedal edema (trace) Neurologic/Psychiatric: positive: Motor nml, Sensation nml, Disoriented to time , Weakness, Sensory loss, Depressed mood/affect Reflexes: Bicep (R): 2+, Bicep (L): 2+ - Lab Results Fish Bones: 11/09/17 04:48 11/09/17 04:48 Other Labs: Lab Results x24hrs 11/08/17 11/08/17 11/08/17 Range/Units 04:40 04:40 04:40 WBC 20.5 H (4.8-10.8) x10^3/uL RBC 3.95 L (4.70-6.10) 10^6/uL Hgb 12.4 L (14.0-18.0) g/dL Hct 37.5 L (42.0-52.0) % MCV 94.9 H (80.0-94.0) fL MCH 31.5 H (27.0-31.0) pg MCHC 33.2 (32.0-36.0) g/dL RDW 13.2 (12.0-15.0) % Plt Count 206 (130-450) 10^3/uL MPV 9.4 (7.4-11.4) fL Neut # Not Reportable Lymph # Not Reportable [place] # Not Reportable Eos # Not Reportable Baso # Not Reportable Absolute Nucleated RBC Not Reportable Total Counted 100 Band Neuts % (Manual) 7 (0 - 10) % Abnorm Lymph % (Manual) 0 % Nucleated RBC % Not Reportable Neutrophils # (Manual) 17.6 H (1.5-6.6) 10^3/uL Lymphocytes # (Manual) 1.4 L (1.5-3.5) 10^3/uL Monocytes # (Manual) 1.4 H (0.0-1.0) 10^3/uL Eosinophils # (Manual) 0.0 (0-0.7) 10^3/uL Basophils # (Manual) 0.0 (0-0.1) 10^3/uL Differential Comment MANUAL DIFFERENTIAL Platelet Estimate NORMAL (130-450,000) (NORMAL) RBC Morph Micro Appear NORMAL APPEARANCE (NORMAL) PT 12.8 H (9.9-12.6) secs INR 1.1 (0.8-1.2) Sodium 136 (135-145) mmol/L Potassium 4.0 (3.5-5.0) mmol/L Chloride 106 (101-111) mmol/L Carbon Dioxide 20 L (21-32) mmol/L Anion Gap 10.0 (6-13) BUN 28 H (6-20) mg/dL Creatinine 1.0 (0.6-1.2) mg/dL Estimated GFR (MDRD) 71 L (>89) Glucose 157 H (70-100) mg/dL Calcium 8.8 (8.5-10.3) mg/dL Total Bilirubin 0.5 (0.2-1.0) mg/dL AST 26 (10-42) IU/L ALT 29 (10-60) IU/L Alkaline Phosphatase 40 L (42-121) IU/L Total Protein 7.3 (6.7-8.2) g/dL Albumin 3.6 (3.2-5.5) g/dL Globulin 3.7 (2.1-4.2) g/dL Albumin/Globulin Ratio 1.0 (1.0-2.2) - Diagnostic Imaging Diagnostic Imaging Results: positive: Final report reviewed Assessment/Plan - Problem List (1) Lobar pneumonia, unspecified organism Impression: Patient is noted to have a right sided pneumonia suspicious for aspiration. Patient denies increased cough or sputum production. Plan: Continue IV antibiotics, IV steroids, and nebs. The patient will be sent home on antibiotics and steroids.
[2017-11-09 05:31] LABS: BASOPHILS % (AUTO) 0.2 %; HGB - HEMOGLOBIN 11.9 g/dL (14.0-18.0); LYMPHOCYTES # (AUTO) 1.1 10^3/uL (1.5-3.5); LYMPHOCYTES % (AUTO) 6.6 %; MEAN CORPUSCULAR HEMOGLOBIN 31.7 pg (27.0-31.0); MEAN CORPUSCULAR HGB CONC 33.3 g/dL (32.0-36.0); MEAN CORPUSCULAR VOLUME 95.2 fL (80.0-94.0); MEAN PLATELET VOLUME 9.4 fL (7.4-11.4); MONOCYTES # (AUTO) 0.5 10^3/uL (0.0-1.0); NEUTROPHILS # (AUTO) 14.7 10^3/uL (1.5-6.6); NEUTROPHILS % (AUTO) 90.2 %; PLT - PLATELET COUNT 219 10^3/uL (130-450); RED BLOOD COUNT 3.76 10^6/uL (4.70-6.10); RED CELL DISTRIBUTION WIDTH 12.8 % (12.0-15.0); WHITE BLOOD COUNT 16.3 x10^3/uL (4.8-10.8)
[2017-11-09 05:35] LABS: ALBUMIN 3.5 g/dL (3.2-5.5); BILIRUBIN,TOTAL 0.7 mg/dL (0.2-1.0); CALCIUM 8.7 mg/dL (8.5-10.3); TOTAL PROTEIN 6.9 g/dL (6.7-8.2)
[2017-11-09 05:57] VITALS: BP 163/94
--- NOTE | 2017-11-09 06:08 | DISCHARGE SUMMARY ---
Discharge Summary Admit Date: 11/06/17 Discharge Date: 11/09/17 Discharging Provider: AMBERLY Vizcaino Primary Care Provider: Riley Cisneros Code Status: Attempt Resuscitation Condition at Discharge: Good Discharge Disposition: 01 Home, Self Care - DIAGNOSES Admission Diagnoses: Right lower lobe pneumonia (J18.1) Dementia (F03.90) Atrial fibrillation, chronic (I48.2) Discharge Diagnoses with Status of Each Condition: Right lower lobe pneumonia (J18.1) improved, treatment to continue Atrial fibrillation, chronic (I48.2) chronic, stable. Dementia (F03.90) chronic, stable. Dysphagia causing pulmonary aspiration with swallowing (R13.19) new on this admission, thickened liquids recommended. - HPI History of Present Illness: Jaylen Can (Bob) is an elderly 87-year old white male with a past medical history of short term memory loss, early dementia, previous pneumonia, hypertension, atrial fibrillation, knee replacement, coronary stenting, and COPD. He presented to the ED today after being ill for the past 3 days with a cough, chills, fever, and increased SOB. He attempted to get an appointment with his PCP yesterday for these symptoms with no luck. He denies chest pain, N /V, or dizziness. He will be admitted for further treatment of his pneumonia, IV fluids and telemetry monitoring. - HOSPITAL COURSE Hospital Course: The following diagnoses were prevalent during this hospital stay: (1) Lobar pneumonia, unspecified organism- Patient is noted to have a right sided pneumonia suspicious for aspiration. Patient denies increased cough or sputum production. Patient was given IV antibiotics, IV steroids, and nebs. Antibiotics and steroids were changed to oral upon discharge. (2) Chronic atrial fibrillation- Patient is noted to have severe RA enlargement , causing the patient's arrhythmia to be chronic. He admits to previous anticoagulation. Telemetry monitoring was uneventful and was discontinued for 24 hours. Patient is not currently on anticoagulation likely due to frequent falls. (3) Dementia- Patient has been living with friends Charanjit and Vida who are his care givers. Patient no longer drives, but can still complete all ADLs. Due to patient's declining health and poor memory, he now lives with friends. (4) Dysphasia- After a swallow study, it is recommended to thicken liquids. A prescription was sent to the pharmacy for this. This likely explains this episode of pneumonia. Disposition: Patient was discharged in stable condition with roommate to transport. - ALLERGIES Allergies/Adverse Reactions: Allergies Allergy/AdvReac Type Severity Reaction Status Date / Time amoxicillin Allergy Unknown Verified 12/05/16 16:59 codeine Allergy Unknown Verified 12/05/16 16:58 Etnqvre-Jks-Wtn Reductase Allergy Unknown Verified 12/05/16 17:02 Inhibitor - MEDICATIONS Home Medications: Ambulatory Orders Medication Instructions Recorded Confirmed Aspirin Chewable [[place] 81 mg PO DAILY 12/02/16 11/06/17 Aspirin] Cetirizine [ZyrTEC] 10 mg PO DAILY 12/02/16 11/06/17 Losartan Potassium [Cozaar] 100 mg PO DAILY 12/02/16 11/06/17 [place]-3/Dha/Epa/Fish Oil [Fish Oil 1,000 mg PO DAILY 12/02/16 11/06/17 1,000 mg Softgel] Albuterol Sulfate [Proair Hfa 1 - 2 puffs INH Q4H PRN #1 inhaler 12/08/16 Inhaler] Carvedilol [Coreg] 6.25 mg PO BID 11/06/17 11/06/17 Cellulose Gum [Thik & Clear] 1 each PO Q2H #100 packet 11/09/17 Saccharomyces Boulardii [Florastor] 250 mg PO BID 20 Days #40 capsule 11/09/17 Spironolactone [Aldactone] 25 mg PO DAILY #30 tablet 11/09/17 guaiFENesin [Mucinex] 600 mg PO BID #60 tablet 11/09/17 levoFLOXacin [Levofloxacin] 500 mg PO DAILY 10 Days #10 tablet 11/09/17 predniSONE [Prednisone] 20 mg PO DAILY 6 Days #9 tablet 11/09/17 - PHYSICAL EXAM AT DISCHARGE General Appearance: positive: No acute distress, Alert Eyes Bilateral: positive: Normal inspection, PERRL ENT: positive: ENT inspection nml, Pharynx nml, No signs of dehydration Neck: positive: Nml inspection, Thyroid nml, No JVD, Trachea midline Respiratory: positive: Chest non-tender, No respiratory distress, Other ( scattered crackles bilaterally) Cardiovascular: positive: No gallop, Irregularly irregular, Systolic murmur, Decreased pulse(s) Peripheral Pulses: positive: 1+ Abdomen: positive: Non-tender, Nml bowel sounds, Other (rounded, soft) Back: positive: Nml inspection Skin: positive: No rash, Warm, Dry Extremities: positive: Non-tender, Full ROM, Pedal edema Neurologic/Psychiatric: positive: Disoriented to time, Weakness, Sensory loss, Depressed mood/affect, Other (baseline dementia) Reflexes: Bicep (R): 2+, Bicep (L): 2+ - LABS Result Diagrams: 11/09/17 04:48 11/09/17 04:48 - DIAGNOSTIC IMAGING Diagnostic Imaging Results: Final report reviewed Diagnostic Imaging Results Comments: Chest x-ray 11/06/17: Patchy opacity in right lung base was noted. - FOLLOW UP Follow Up: Disposition: Home, Self Care Condition: Good Prescriptions: Cellulose Gum [Thik & Clear] 1 each PO Q2H #100 packet guaiFENesin [Mucinex] 600 mg PO BID #60 tablet levoFLOXacin [Levofloxacin] 500 mg PO DAILY 10 Days #10 tablet predniSONE [Prednisone] 20 mg PO DAILY 6 Days #9 tablet Saccharomyces Boulardii [Florastor] 250 mg PO BID 20 Days #40 capsule Spironolactone [Aldactone] 25 mg PO DAILY #30 tablet Diet: Cardiac Activity Restrictions: No Restrictions Shower Restrictions: No Driving Restrictions: Yes Weight Bearing: Full Weight Additional Instructions or Follow Up instructions: You were admitted for aspiration pneumonia. You had a swallowing test that showed that liquids were getting into your lungs without you knowing. You were given IV antibiotics and IV steroids, which will continue for a little longer at home. I have sent over a product called thik and clear, to help thicken your liquids. You should add it to to your drinks until you see your regular doctor. Please STOP your potassium pill because you are on a new medication that holds onto potassium. You should see your PCP within one week of discharge to talk more about the swallowing and as a follow up to this stay. - TIME SPENT Time Spent in Discharge (Minutes): 45
--- NOTE | 2017-11-09 06:11 | Discharge Plan ---
Discharge Plan Disposition: Home, Self Care Condition: Good Prescriptions: Cellulose Gum [Thik & Clear] 1 each PO Q2H #100 packet guaiFENesin [Mucinex] 600 mg PO BID #60 tablet levoFLOXacin [Levofloxacin] 500 mg PO DAILY 10 Days #10 tablet predniSONE [Prednisone] 20 mg PO DAILY 6 Days #9 tablet Saccharomyces Boulardii [Florastor] 250 mg PO BID 20 Days #40 capsule Spironolactone [Aldactone] 25 mg PO DAILY #30 tablet Diet: Cardiac Activity Restrictions: No Restrictions Shower Restrictions: No Driving Restrictions: Yes Weight Bearing: Full Weight Additional Instructions or Follow Up instructions: You were admitted for aspiration pneumonia. You had a swallowing test that showed that liquids were getting into your lungs without you knowing. You were given IV antibiotics and IV steroids, which will continue for a little longer at home. I have sent over a product called thik and clear, to help thicken your liquids. You should add it to to your drinks until you see your regular doctor. Please STOP your potassium pill because you are on a new medication that holds onto potassium. You should see your PCP within one week of discharge to talk more about the swallowing and as a follow up to this stay. No Smoking: If you smoke, Please STOP! Call for help. Follow-up with: Leeroy Cisneros MD [Primary Care Provider] -
[2017-11-09 06:19] LABS: HEMOGLOBIN A1C 0.52 g/dL; HEMOGLOBIN A1C % 5.8 % (4.6-6.2)
[2017-11-09] MEDS ORDERED: predniSONE 20 MG TABLET PO SCH (07:59)
[2017-11-09] MEDS: LEVALBUTEROL 1.25 MG/3 ML NEB INH SCH (08:20)
[2017-11-09] MEDS: POLYETHYLENE GLYCOL 3350 17 GM PACKET PO SCH (08:53)
[2017-11-09] MEDS: ENOXAPARIN 40 MG/0.4 ML SYRINGE SUBQ SCH (08:54)
[2017-11-09] MEDS: SPIRONOLACTONE 25 MG TABLET PO SCH ×2 (08:54→09:44)
[2017-11-09] MEDS: guaiFENesin 600 MG TABLET PO SCH (08:54)
[2017-11-09] MEDS: CARVEDILOL 3.125 MG TABLET PO SCH (08:54)
[2017-11-09] MEDS: FUROSEMIDE 40 MG/4 ML VIAL IVP SCH ×2 (08:54→09:44)
[2017-11-09] MEDS: cefTRIAXone 1 GM in SODIUM CHLORIDE 0.9% MINIBAG 100 ML IV SCH (08:55)
[2017-11-09] MEDS: SODIUM CHLORIDE FLUSH 0.9% 10 ML SYRINGE IVP SCH (08:55)
== END 2017-11-09 11:16 | disposition home or self-care (01) | DRG 179 ==
LOC: ED 09:27 → MS3 11:19
PROVIDERS: ADMIT Nurse Practitioner; ATTEND Nurse Practitioner
DX: J69.0 Pneumonitis due to inhalation of food and vomit (principal); I48.2 Chronic atrial fibrillation; I10 Essential (primary) hypertension; R13.19 Other dysphagia; K21.9 Gastro-esophageal reflux disease without esophagitis; H91.90 Unspecified hearing loss, unspecified ear; H54.7 Unspecified visual loss; J44.9 Chronic obstructive pulmonary disease, unspecified; Z79.82 Long term (current) use of aspirin; Z79.51 Long term (current) use of inhaled steroids; Z79.01 Long term (current) use of anticoagulants; Z79.899 Other long term (current) drug therapy; Z87.01 Personal history of pneumonia (recurrent); Z96.659 Presence of unspecified artificial knee joint; Z95.5 Presence of coronary angioplasty implant and graft; F03.90 Unspecified dementia, unspecified severity, without behavioral disturbance, psychotic disturbance, mood disturbance, and anxiety
CPT/HCPCS: 36415; 71045; 80048; 80053; 83036; 83605; 83735; 83880; 84100; 84443; 84484; 85025; 85610; 85730; 87040; 87275; 87276; 93005; 93306; 94640; 96361; 96365; 99283; 99284

== ENCOUNTER 2018-03-06 14:47 | Outpatient (CLI) | payer MEDICARE, OTHER ==
[2018-03-06 18:38] LABS: BASOPHILS % (AUTO) 0.8 %; EOSINOPHILS # (AUTO) 0.3 10^3/uL (0.0-0.7); EOSINOPHILS % (AUTO) 4.9 %; HGB - HEMOGLOBIN 13.2 g/dL (14.0-18.0); LYMPHOCYTES # (AUTO) 1.6 10^3/uL (1.5-3.5); LYMPHOCYTES % (AUTO) 27.6 %; MEAN CORPUSCULAR HEMOGLOBIN 32.7 pg (27.0-31.0); MEAN CORPUSCULAR HGB CONC 32.9 g/dL (32.0-36.0); MEAN CORPUSCULAR VOLUME 99.2 fL (80.0-94.0); MEAN PLATELET VOLUME 8.9 fL (7.4-11.4); MONOCYTES # (AUTO) 0.8 10^3/uL (0.0-1.0); MONOCYTES % (AUTO) 14.3 %; NEUTROPHILS # (AUTO) 3.1 10^3/uL (1.5-6.6); NEUTROPHILS % (AUTO) 52.4 %; PLT - PLATELET COUNT 206 10^3/uL (130-450); RED BLOOD COUNT 4.04 10^6/uL (4.70-6.10); RED CELL DISTRIBUTION WIDTH 13.4 % (12.0-15.0); WHITE BLOOD COUNT 5.9 x10^3/uL (4.8-10.8)
[2018-03-06 18:46] LABS: ALBUMIN 4.1 g/dL (3.2-5.5); ALBUMIN/GLOBULIN RATIO 1.2 (1.0-2.2); BILIRUBIN,TOTAL 1.1 mg/dL (0.2-1.0); CALCIUM 9.1 mg/dL (8.5-10.3); CREATININE 1.1 mg/dL (0.6-1.2); TOTAL PROTEIN 7.4 g/dL (6.7-8.2)
[2018-03-06 18:55] LABS: HB2 TOTAL 14.3 g/dL; HEMOGLOBIN A1C 0.51 g/dL; HEMOGLOBIN A1C % 5.4 % (4.6-6.2)
== END 2018-03-06 14:48 | disposition home or self-care (01) ==
LOC: LAB.WCP 14:47
PROVIDERS: ATTEND Family Medicine
DX: J18.9 Pneumonia, unspecified organism (principal); I25.10 Atherosclerotic heart disease of native coronary artery without angina pectoris; E11.9 Type 2 diabetes mellitus without complications; I10 Essential (primary) hypertension; I48.91 Unspecified atrial fibrillation
CPT/HCPCS: 36415; 80053; 83036; 84443; 85025

== ENCOUNTER 2019-01-19 11:29 | Outpatient (CLI) | payer MEDICARE, OTHER | END 2019-01-19 11:30 | disposition short-term general hospital (02) | LOC: EMS 11:29 | PROVIDERS: ATTEND Surgery | DX: R07.9 Chest pain, unspecified (principal) | CPT/HCPCS: A0425; A0427 ==

== ENCOUNTER 2019-06-27 09:54 | Emergency (ER) | payer MEDICARE, OTHER ==
[2019-06-27 10:07] VITALS: BP 118/99
--- NOTE | 2019-06-27 10:14 | ED Physician Documentation ---
PD HPI URI - Stated complaint Stated Complaint: COUGH - Chief complaint Chief Complaint: Resp - History obtained from History obtained from: Patient - History of Present Illness Timing - onset: Yesterday Timing duration: Days (1-2) Timing details: Gradual onset Associated symptoms: Dry cough. No: Fever, Nasal congestion, Swollen nodes, Hemoptysis, Dyspnea, NVD, Bilateral edema Contributing factors: No: Sick contact, COPD / asthma (prior episode of aspiration last year) Worsened by: Activity, Position (he is coughing more at night, when lying down) Similar symptoms before: Diagnosis (had pneumonia last year, so his son is concerned about the early cough and some dyspnea) Recently seen: Not recently seen Review of Systems Constitutional: denies: Fever, Chills, Myalgias Nose: denies: Rhinorrhea / runny nose, Congestion Throat: reports: Sore throat Respiratory: reports: Dyspnea (mild, mostly last night when lying down; feeling better this morning when getting up.), Cough. denies: Wheezing Musculoskeletal: denies: Extremity swelling Neurologic: reports: Generalized weakness. denies: Focal weakness, Numbness PD PAST MEDICAL HISTORY - Past Medical History Cardiovascular: Hypertension, Atrial fibrillation, Arrhythmia Respiratory: None Endocrine/Autoimmune: None GI: GERD : Nocturia, Frequency HEENT: Chronic vision loss, Chronic hearing loss Psych: None Musculoskeletal: None Derm: None - Past Surgical History Ortho: Knee replacement Cardiovascular: Coronary stent - Present Medications Home Medications: Ambulatory Orders Medication Instructions Recorded Confirmed Aspirin Chewable [St [place] 81 mg PO DAILY 12/02/16 06/27/19 Aspirin] Cetirizine [ZyrTEC] 10 mg PO DAILY 12/02/16 06/27/19 Losartan Potassium [Cozaar] 100 mg PO DAILY 12/02/16 06/27/19 [place]-3/Dha/Epa/Fish Oil [Fish Oil 1,000 mg PO DAILY 12/02/16 06/27/19 1,000 mg Softgel] Albuterol Sulfate [Proair Hfa 1 - 2 puffs INH Q4H PRN #1 inhaler 12/08/16 06/27/19 Inhaler] Carvedilol [Coreg] 6.25 mg PO BID 11/06/17 06/27/19 Benzonatate [Tessalon Perle] 100 mg PO TID PRN #20 capsule 06/27/19 Doxycycline Hyclate 100 mg PO BID #14 tab 06/27/19 dexAMETHasone [Decadron] 4 mg PO DAILY #5 tablet 06/27/19 - Allergies Allergies/Adverse Reactions: Allergies Allergy/AdvReac Type Severity Reaction Status Date / Time amoxicillin Allergy Unknown Verified 12/05/16 16:59 codeine Allergy Unknown Verified 12/05/16 16:58 Njayvbx-Ixx-Kfn Reductase Allergy Unknown Verified 12/05/16 17:02 Inhibitor - Social History Does the pt smoke?: No Smoking Status: Never smoker Does the pt drink ETOH?: Yes Does the pt have substance abuse?: No - POLST Patient has POLST: No POLST Status: Full Code PD ED PE NORMAL - Vitals Vital signs reviewed: Yes - General General: Alert and oriented X 3, No acute distress, Well developed/nourished - HEENT HEENT: Moist mucous membranes, Pharynx benign, Other (intermittent cough, with some hoarseness of voice. ) - Neck Neck: Supple, no meningeal sign, No adenopathy, No JVD - Cardiac Cardiac: RRR, No murmur - Respiratory Respiratory: Clear bilaterally - Abdomen Abdomen: Soft, Non tender - Back Back: No CVA TTP - Derm Derm: Normal color, Warm and dry - Extremities Extremities: No edema, No calf tenderness / cord Results - Vitals Vitals: Vital Signs - 24 hr 06/27/19 09:57 Temperature 36.5 C Heart Rate 80 Respiratory 18 Rate Blood Pressure 118/99 H O2 Saturation 97 Oxygen O2 Source Room air - Rads (name of study) chest xray Radiology: Prelim report reviewed (no infiltrates), See rad report PD MEDICAL DECISION MAKING - ED course Complexity details: considered differential (normal CXR, good sats, unlabored breathing. Likley irritated (could be some mild reflux/aspiration, or more likely viral)), d/w patient Departure - Departure Disposition: 01 Home, Self Care Clinical Impression: Cough Condition: Stable Record reviewed to determine appropriate education?: Yes Instructions: ED Upper Resp Infec No Abx Tx Prescriptions: Benzonatate [Tessalon Perle] 100 mg PO TID PRN #20 capsule PRN Reason: Cough dexAMETHasone [Decadron] 4 mg PO DAILY #5 tablet Doxycycline Hyclate 100 mg PO BID #14 tab Comments: The chest x-ray appears clear. Lungs are good and his oxygenation is good. This may be a throat or upper airway irritation that could come from a mild aspiration. It does not look like a significant episode at this point. Alternatively could be an early viral illness and so there may be some cough and sore throat and illness for several days. Treat these with Decadron steroid daily for several days for the inflammation and Tessalon if needed for cough suppression. He can add Mucinex if needed. I do not get a sense of a bacterial infection at this point but if he does develop increasing cough, purulent sputum or fevers, then add doxycycline antibiotic. Recheck if worsening symptoms over the next few days not improved with the above. Discharge Date/Time: 06/27/19 11:26
[2019-06-27] MEDS ORDERED: DEXAMETHASONE 10 MG/ML VIAL PO STA (10:33)
[2019-06-27] MEDS ORDERED: BENZONATATE 100 MG CAPSULE PO STA (10:33)
[2019-06-27] MEDS ORDERED: CHERRY SYRUP 10 ML UDC PO ONE (10:33)
--- NOTE | 2019-06-27 11:49 | XRAY Report ---
Reason: dyspnea/ cough Procedure Date: 06/27/2019 Accession Number: [id number] / [id number] Procedure: XR - Chest 2 View X-Ray CPT Code: 09991 FULL RESULT: EXAM: CHEST RADIOGRAPHY EXAM DATE: 06/27/2019 10:52 AM. CLINICAL HISTORY: Shortness of breath. Cough. COMPARISON: CHEST 2 VIEW PA/LAT 04/11/2018 3:17 PM. TECHNIQUE: 2 views. FINDINGS: Lungs/Pleura: No focal opacities evident. No pleural effusion. No pneumothorax. Normal volumes. Mediastinum: Heart and mediastinal contours are notable for aortic calcification. Other: None. IMPRESSION: No acute cardiopulmonary abnormality demonstrated. RADIA
== END 2019-06-27 11:26 | disposition home or self-care (01) ==
LOC: ED 09:54
DX: R05 Cough (principal); R49.0 Dysphonia; I10 Essential (primary) hypertension; Z79.82 Long term (current) use of aspirin
CPT/HCPCS: 71046; 99283; 99284; A9270

== ENCOUNTER 2019-10-02 10:53 | Emergency (ER) | payer MEDICARE, OTHER ==
--- NOTE | 2019-10-02 11:34 | XRAY Report ---
Reason: cough, congestion Procedure Date: 10/02/2019 Accession Number: [id number] / [id number] Procedure: XR - Chest 2 View X-Ray CPT Code: 68766 Final Report FULL RESULT: EXAM: CHEST RADIOGRAPHY EXAM DATE: 10/02/2019 11:14 AM. CLINICAL HISTORY: Cough, congestion. COMPARISON: CHEST 2 VIEW 06/27/2019 10:38 AM. TECHNIQUE: 2 views. FINDINGS: Lungs/Pleura: Subtle increased interstitial markings with peribronchial cuffing in the right lung base. No focal opacities evident. No pleural effusion. No pneumothorax. Normal volumes. Mediastinum: Heart and mediastinal contours are unremarkable. Other: None. IMPRESSION: 1. No focal consolidation. 2. Subtle increased interstitial markings and peribronchial cuffing are nonspecific but can be seen in the setting of reactive airways disease, bronchitis or viral infection. RADIA
--- NOTE | 2019-10-02 12:27 | ED Physician Documentation ---
PD HPI DYSPNEA - Stated complaint Stated Complaint: CONGESTION - Chief complaint Chief Complaint: Resp - History obtained from History obtained from: Patient, Family - History of Present Illness Timing - onset: Other (89-year-old gentleman with underlying COPD and dementia presents with 2 to 3 days of cough productive of yellow sputum but no shortness of breath or fevers or chest pain. No nasal congestion or ear pain. Much of the history is from the family because of dementia.) Review of Systems Constitutional: denies: Fever, Chills Nose: denies: Rhinorrhea / runny nose Cardiac: denies: Chest pain / pressure, Palpitations, Pedal edema, Calf pain Respiratory: reports: Cough. denies: Dyspnea, Hemoptysis, Wheezing PD PAST MEDICAL HISTORY - Past Medical History Cardiovascular: Atrial fibrillation, Arrhythmia Respiratory: None Endocrine/Autoimmune: None GI: GERD : Nocturia, Frequency HEENT: Chronic hearing loss Psych: None Musculoskeletal: None Derm: None - Past Surgical History Past Surgical History: Yes Ortho: Knee replacement Cardiovascular: Coronary stent - Present Medications Home Medications: Ambulatory Orders Medication Instructions Recorded Confirmed Aspirin Chewable [[place] 81 mg PO DAILY 12/02/16 10/02/19 Aspirin] Cetirizine [ZyrTEC] 10 mg PO DAILY 12/02/16 10/02/19 Losartan Potassium [Cozaar] 100 mg PO DAILY 12/02/16 10/02/19 Albuterol Sulfate [Proair Hfa 1 - 2 puffs INH Q4H PRN #1 inhaler 12/08/16 10/02/19 Inhaler] Carvedilol [Coreg] 6.25 mg PO BID 11/06/17 10/02/19 Doxycycline Hyclate 100 mg PO BID #14 capsule 10/02/19 predniSONE [Deltasone] 20 mg PO [id number] #21 tab 10/02/19 - Allergies Allergies/Adverse Reactions: Allergies Allergy/AdvReac Type Severity Reaction Status Date / Time amoxicillin Allergy Unknown Verified 10/02/19 11:06 codeine Allergy Unknown Verified 10/02/19 11:06 Crfbfmo-Dir-Ibx Reductase Allergy Unknown Verified 10/02/19 11:06 Inhibitor - Social History Does the pt smoke?: No Smoking Status: Former smoker Does the pt drink ETOH?: Yes ETOH Use: Beer Does the pt have substance abuse?: No - Immunizations Immunizations are current?: Yes - POLST Patient has POLST: No POLST Status: Full Code PD ED PE NORMAL - Vitals Vital signs reviewed: Yes - General General: Alert and oriented X 3, No acute distress - HEENT HEENT: PERRL, EOMI - Neck Neck: Supple, no meningeal sign, No bony TTP - Cardiac Cardiac: RRR, No murmur - Respiratory Respiratory: No respiratory distress, Other (Diminished throughout with some scattered wheezes but no other focal findings) - Abdomen Abdomen: Non tender - Back Back: No CVA TTP, No spinal TTP - Derm Derm: Normal color, Warm and dry - Extremities Extremities: No edema, No calf tenderness / cord - Neuro Neuro: Alert and oriented X 3, Normal speech Results - Vitals Vitals: Vital Signs - 24 hr 10/02/19 11:00 Temperature 36.6 C Heart Rate 85 Respiratory 18 Rate Blood Pressure 144/76 H O2 Saturation 96 Oxygen O2 Source Room air - Labs Labs: Laboratory Tests 10/02/19 11:11 Influenza A (Rapid) Negative Influenza B (Rapid) Negative PD MEDICAL DECISION MAKING - ED course ED course: 89-year-old gentleman who does not appear ill presents with what seems most closely matched with a COPD exacerbation. Chest x-ray is nonspecific with some perihilar thickening but no pneumonia. Departure - Departure Disposition: 01 Home, Self Care Clinical Impression: COPD exacerbation Condition: Good Record reviewed to determine appropriate education?: Yes Instructions: ED Bronchitis Asthmatic Prescriptions: Doxycycline Hyclate 100 mg PO BID #14 capsule predniSONE [Deltasone] 20 mg PO [id number] #21 tab Comments: Return for new or worsening symptoms, follow-up with your doctor early next week for recheck.
[2019-10-02 12:36] VITALS: BP 107/62
== END 2019-10-02 12:36 | disposition home or self-care (01) ==
LOC: ED 10:53
DX: J44.1 Chronic obstructive pulmonary disease with (acute) exacerbation (principal); F03.90 Unspecified dementia, unspecified severity, without behavioral disturbance, psychotic disturbance, mood disturbance, and anxiety; Z87.891 Personal history of nicotine dependence
CPT/HCPCS: 71046; 87275; 87276; 99283; 99284

== ENCOUNTER 2021-08-08 08:00 | Outpatient (CLI) | payer MEDICARE, OTHER ==
--- NOTE | 2021-08-08 14:33 | XRAY Report ---
PROCEDURE: Chest 2 View X-Ray INDICATIONS: COPD, ACUTE EXACERBATION TECHNIQUE: 2 view(s) of the chest. COMPARISON: 06/27/2019 and 10/02/2019. FINDINGS: Surgical changes and devices: None. Lungs and pleura: No pleural effusions or pneumothorax. Lungs are clear. Mediastinum: Mediastinal contours are normal. Heart size is normal. Bones and chest wall: No suspicious bony abnormalities. Soft tissues appear unremarkable. IMPRESSION: Stable evaluation of the chest without acute cardiopulmonary abnormalities. Reviewed by: Reginaldo Martell MD on 08/08/2021 2:32 PM PST Approved by: Reginaldo Martell MD on 08/08/2021 2:32 PM PST Station ID: [id number]
== END 2021-08-08 23:59 ==
LOC: DI.N 08:00
PROVIDERS: ATTEND Family Medicine
DX: J44.1 Chronic obstructive pulmonary disease with (acute) exacerbation (principal)

== ENCOUNTER 2021-11-20 09:42 | Outpatient (CLI) | payer MEDICARE, OTHER ==
[2021-11-20 13:29] LABS: BASOPHILS % (AUTO) 0.7 %; EOSINOPHILS # (AUTO) 0.4 10^3/uL (0.0-0.7); EOSINOPHILS % (AUTO) 7.4 %; HCT - HEMATOCRIT 42.6 % (42.0-52.0); HGB - HEMOGLOBIN 14.3 g/dL (14.0-18.0); LYMPHOCYTES % (AUTO) 18.7 %; MEAN CORPUSCULAR HEMOGLOBIN 31.8 pg (27.0-31.0); MEAN CORPUSCULAR HGB CONC 33.6 g/dL (32.0-36.0); MEAN CORPUSCULAR VOLUME 94.9 fL (80.0-94.0); MEAN PLATELET VOLUME 11.3 fL (7.4-11.4); MONOCYTES # (AUTO) 0.6 10^3/uL (0.0-1.0); MONOCYTES % (AUTO) 11.3 %; NEUTROPHILS # (AUTO) 3.4 10^3/uL (1.5-6.6); NEUTROPHILS % (AUTO) 61.5 %; PLT - PLATELET COUNT 217 10^3/uL (130-450); RED BLOOD COUNT 4.49 10^6/uL (4.70-6.10); RED CELL DISTRIBUTION WIDTH 12.7 % (12.0-15.0); WHITE BLOOD COUNT 5.6 x10^3/uL (4.8-10.8)
[2021-11-20 13:34] LABS: CREATININE,URINE 206.1 mg/dL; MICROALBUM/CREATININE RATIO,UR 21.3 ug/mg (<30.0); MICROALBUMIN,URINE 4.4 mg/dL (0-300.0)
[2021-11-20 13:44] LABS: THYROID STIMULATING HORMONE 3.64 uIU/mL (0.34-5.60)
[2021-11-20 14:22] LABS: ESTIMATED AVERAGE GLUCOSE 128 mg/dL (70-100); HEMOGLOBIN A1c% 6.1 % (4.27-6.07)
[2021-11-20 14:57] LABS: ALBUMIN/GLOBULIN RATIO 1.2 (1.0-2.2); ALKALINE PHOSPHATASE 43 IU/L (42-121); ALT ALANINE AMINOTRANSFERASE 16 IU/L (10-60); AST ASPARTATE AMINOTRANSFERASE 18 IU/L (10-42); BUN - BLOOD UREA NITROGEN 19 mg/dL (6-20); CHOL/HDL RATIO 3.1 (<5.0); CHOLESTEROL 144 mg/dL; GFR - MDRD 70 (>89); HDL CHOLESTEROL 47 mg/dL; LDL CHOLESTEROL,CALCULATED 88 mg/dL; LDL/HDL RATIO 1.9 (<3.6); TOTAL PROTEIN 7.3 g/dL (6.7-8.2); TRIGLYCERIDES 44 mg/dL; VLDL CHOLESTEROL 9 mg/dL
[2021-11-20 14:59] LABS: CALCIUM 9.5 mg/dL (8.5-10.3); CARBON DIOXIDE - CO2 25 mmol/L (21-32); CHLORIDE 99 mmol/L (101-111); GLUCOSE 109 mg/dL (70-100); POTASSIUM 3.9 mmol/L (3.5-5.0); SODIUM 136 mmol/L (135-145)
== END 2021-11-20 09:43 | disposition home or self-care (01) ==
LOC: LAB.N 09:42
PROVIDERS: ATTEND Nurse Practitioner
DX: E11.9 Type 2 diabetes mellitus without complications (principal); E78.5 Hyperlipidemia, unspecified; E55.9 Vitamin D deficiency, unspecified; I25.5 Ischemic cardiomyopathy; R06.02 Shortness of breath; I48.91 Unspecified atrial fibrillation
CPT/HCPCS: 36415; 80053; 80061; 82043; 82306; 82570; 82607; 83036; 83721; 83880; 84443; 85025

== ENCOUNTER 2021-12-01 11:19 | Outpatient (CLI) | payer MEDICARE, OTHER ==
--- NOTE | 2021-12-01 11:40 | XRAY Report ---
PROCEDURE: Chest 2 View X-Ray INDICATIONS: COPD ACUTE EXACERBATION TECHNIQUE: 2 view(s) of the chest. COMPARISON: August 08, 2021. FINDINGS: SUPPORT DEVICES: None. LUNGS/PLEURA: Coarsened interstitial markings. No focal consolidation, pleural effusion or space-occu pying pneumothorax. MEDIASTINUM: The cardiomediastinal silhouette is within normal limits. BONES/SOFT TISSUES: No acute abnormality. IMPRESSION: 1.No acute cardiopulmonary abnormality. Reviewed by: Khurram Pascual MD on 12/01/2021 11:39 AM PDT Approved by: Khurram Pascual MD on 12/01/2021 11:39 AM PDT Station ID: [id number]
== END 2021-12-01 23:59 | disposition home or self-care (01) ==
LOC: DI.N 11:19
PROVIDERS: ATTEND Nurse Practitioner Family
DX: J44.1 Chronic obstructive pulmonary disease with (acute) exacerbation (principal)

== ENCOUNTER 2021-12-01 12:35 | Emergency (ER) | payer MEDICARE, OTHER ==
--- NOTE | 2021-12-01 13:45 | ED Physician Documentation ---
PD HPI DYSPNEA - Stated complaint Stated Complaint: CONGESTION/SOA - Chief complaint Chief Complaint: Resp - History obtained from History obtained from: Family - Additional information Additional information: 89-year-old gentleman with COPD and dementia. The history is from the son as his dementia is prevents him from giving a useful history. He was sick about a month ago with a COPD flare. Sounds like he got a Z-Elliot and improved. Got sick again about 8 days ago and was seen in the office and given doxycycline, by report no steroids. Has not helped much and continues to have a productive c ough with shortness of breath. Poor appetite today. No reported fevers. Review of Systems Unable to obtain: Dementia PD PAST MEDICAL HISTORY - Past Medical History Past Medical History: Yes Cardiovascular: Atrial fibrillation, Arrhythmia Respiratory: None Endocrine/Autoimmune: None GI: GERD : Nocturia, Frequency HEENT: Chronic hearing loss Psych: None Musculoskeletal: None Derm: None - Past Surgical History Past Surgical History: Yes Ortho: Knee replacement Cardiovascular: Coronary stent - Present Medications Home Medications: Ambulatory Orders Medication Instructions Recorded Confirmed Aspirin Chewable [[place] 81 mg PO DAILY 12/02/16 10/02/19 Aspirin] Cetirizine [ZyrTEC] 10 mg PO DAILY 12/02/16 10/02/19 Losartan Potassium [Cozaar] 100 mg PO DAILY 12/02/16 10/02/19 Albuterol Sulfate [Proair Hfa 1 - 2 puffs INH Q4H PRN #1 inhaler 12/08/16 10/02/19 Inhaler] Carvedilol [Coreg] 6.25 mg PO BID 11/06/17 10/02/19 Doxycycline Hyclate 100 mg PO BID #14 capsule 10/02/19 predniSONE [Deltasone] 20 mg PO [id number] #21 tab 10/02/19 Albuterol 2.5 mg INH Q4H PRN #30 neb 12/01/21 Azithromycin [Zithromax] 1 tab PO DAILY #6 tablet 12/01/21 Ipratropium/Albuterol [Duoneb] 3 ml INH Q6H #30 neb 12/01/21 predniSONE [Deltasone] 20 mg PO [id number] #21 tab 12/01/21 - Allergies Allergies/Adverse Reactions: Allergies Allergy/AdvReac Type Severity Reaction Status Date / Time amoxicillin Allergy Unknown Verified 12/01/21 12:58 codeine Allergy Unknown Verified 12/01/21 12:58 Xtrxven-ETH-IvC Reductase Allergy Unknown Verified 12/01/21 12:58 Inhibitor [Znjslhb-Qat-Aph Reductase Inhibitor] - Social History Does the pt smoke?: No Smoking Status: Never smoker Does the pt drink ETOH?: Yes Does the pt have substance abuse?: No - Immunizations Immunizations are current?: Yes - POLST Patient has POLST: No POLST Status: Full Code PD ED PE NORMAL - Vitals Vital signs reviewed: Yes - General General: Other (Occasional bronchitic cough, very mild resting tachypnea, poor short-term memory) - HEENT HEENT: PERRL, EOMI - Neck Neck: Supple, no meningeal sign, No bony TTP - Cardiac Cardiac: RRR, No murmur - Respiratory Respiratory: Other (Diminished throughout without focal findings) - Abdomen Abdomen: Non tender - Extremities Extremities: No edema, No calf tenderness / cord - Neuro Eye Opening: Spontaneous Motor: Obeys Commands Verbal: Confused GCS Score: 14 Results - Vitals Vitals: Vital Signs - 24 hr 12/01/21 12/01/21 12/01/21 12:52 13:55 13:59 Temperature 36.6 C Heart Rate 96 93 94 Respiratory 24 22 22 Rate Blood Pressure 97/69 131/93 H O2 Saturation 93 98 12/01/21 12/01/21 14:46 15:01 Temperature Heart Rate 86 Respiratory Rate Blood Pressure 139/77 H O2 Saturation 81 L 96 Oxygen O2 Source Room air PD MEDICAL DECISION MAKING - ED course ED course: 89-year-old gentleman presents with COPD exacerbation. No clinical evidence of PE, heart failure, and a chest x-ray done earlier in the day was clear without pneumonia. After the administration of DuoNeb and oral steroids he was feeling better. We had the tach road test him on a pulse oximeter and although he was not labored, his pulse oximetry went down to the low 80s. I offered admission but the son declined feeling like since he does not walk at all at home that they will be okay. I discussed with him that usually this level of pulse oximetry would suggest the need for admission but he continued to decline. Departure - Departure Disposition: 01 Home, Self Care Clinical Impression: COPD exacerbation Condition: Good Record reviewed to determine appropriate education?: Yes Instructions: ED COPD Flare Prescriptions: Albuterol 2.5 mg INH Q4H PRN #30 neb PRN Reason: Wheezing predniSONE [Deltasone] 20 mg PO [id number] #21 tab Ipratropium/Albuterol [Duoneb] 3 ml INH Q6H #30 neb Azithromycin [Zithromax] 1 tab PO DAILY #6 tablet Comments: I sent prescriptions for steroids, nebulizer, antibiotics, and the medications to go in the nebulizer to [facility] pharmacy in [place]. If you have any trouble there, have them call me. Return for new or worsening symptoms, follow-up with your doctor next week for recheck.
[2021-12-01] MEDS: IPRATROPIUM/ALBUTEROL 3 ML NEB INH STA (13:56)
[2021-12-01] MEDS: predniSONE 20 MG TABLET PO STA (14:18)
[2021-12-01 15:07] VITALS: BP 139/77
[2021-12-01] MEDS: LEVALBUTEROL 1.25 MG/3 ML NEB INH STA (15:07)
[2021-12-01] MEDS ORDERED: LEVALBUTEROL 1.25 MG/3 ML NEB INH ONE (15:18)
== END 2021-12-01 15:33 | disposition home or self-care (01) ==
LOC: ED 12:35
DX: J44.1 Chronic obstructive pulmonary disease with (acute) exacerbation (principal); I48.91 Unspecified atrial fibrillation; Z95.5 Presence of coronary angioplasty implant and graft; F03.90 Unspecified dementia, unspecified severity, without behavioral disturbance, psychotic disturbance, mood disturbance, and anxiety
CPT/HCPCS: 36415; 71046; 94640; 99281; 99284; J7512; 80048; 85025

== ENCOUNTER 2022-06-06 08:00 | Outpatient (CLI) | payer MEDICARE, OTHER | END 2022-06-06 23:59 | disposition home or self-care (01) | LOC: LAB.WCP 08:00 | PROVIDERS: ATTEND Family Medicine | DX: I48.91 Unspecified atrial fibrillation (principal); Z79.01 Long term (current) use of anticoagulants ==

== ENCOUNTER → 2022-06-08 | Outpatient (CLI) | payer MEDICARE, OTHER | LOC: LAB.WCP 08:00 | PROVIDERS: ATTEND Internal Medicine | DX: Z79.01 Long term (current) use of anticoagulants (principal); I48.91 Unspecified atrial fibrillation ==

== ENCOUNTER 2022-07-20 08:00 | Outpatient (CLI) | payer MEDICARE, OTHER | END 2022-07-20 23:59 | disposition home or self-care (01) | LOC: LAB.WCP 08:00 | PROVIDERS: ATTEND Nurse Practitioner | DX: Z79.01 Long term (current) use of anticoagulants (principal); I48.91 Unspecified atrial fibrillation ==

== ENCOUNTER 2022-08-01 08:00 | Outpatient (CLI) | payer MEDICARE, OTHER | END 2022-08-01 08:01 | disposition home or self-care (01) | LOC: LAB.WCP 08:00 | PROVIDERS: ATTEND Nurse Practitioner | DX: Z79.01 Long term (current) use of anticoagulants (principal); I48.91 Unspecified atrial fibrillation ==